=== PATIENT | male | born 1965 | race Caucasian/White ===

== ENCOUNTER 2022-11-07 14:31 | Emergency (ER) | payer OTHER, SELFPAY ==
--- NOTE | 2022-11-07 14:33 | ED.WOUNDLAC ---
HPI - Wound/Laceration General Chief Complaint: Wound/Laceration Stated Complaint: Laceration to Finger Time Seen by Provider: 11/07/22 14:33 Source: patient Mode of arrival: ambulatory Limitations: no limitations History of Present Illness HPI narrative: Mr. Braden is a 56-year-old male patient presenting to the clinic today with complaints a laceration to his left 3rd finger. He reports he was cutting up some vegetables and cut his finger. He reports that his tetanus shot is up-to-date. Bleeding is controlled Related Data Home Medications Medication Instructions Recorded Confirmed amlodipine 10 mg tablet mg 11/07/22 rosuvastatin 10 mg tablet mg 11/07/22 Allergies Allergy/AdvReac Type Severity Reaction Status Date / Time gabapentin Allergy Confusion Verified 11/07/22 14:36 naproxen AdvReac Severe Confusion Verified 04/04/19 13:18 Review of Systems Review of Systems: Pertinent positives per HPI. Patient denies any fever, chills, rash, headache, visual changes, dizziness, cough, runny nose, sore throat, shortness of breath, chest pain, palpitations, nausea, vomiting, diarrhea, constipation, abdominal pain, or any urinary issues. PMFSH Comments At the time of my signature, I reviewed and agree with the nursing past medical, surgical, social, and family history. There is no relevant family history pertinent to the patient complaint. Exam Narrative: General: Well-developed, obese, in no apparent distress Head: Normocephalic, atraumatic. Cardio: Regular rate and rhythm, s1 and s2 normal, no murmur appreciated. Resp: Clear to auscultation bilaterally, no rhonchi, rales, wheezing or rubs. Integumentary: [place], warm, and dry, intact without lesion, 1.5 cm laceration to the dorsal left 3rd finger just below the fingernail without nail involvement Course Course Emergency Course: Portions of this record may have been created with voice recognition software. Level of Care: Express Care Visit Vital Signs Vital signs: Vital Signs Temperature 36.7 C 11/07/22 14:36 Pulse Rate 96 11/07/22 14:36 Respiratory Rate 20 11/07/22 14:36 Blood Pressure 131/97 H 11/07/22 14:36 Pulse Oximetry 97 11/07/22 14:36 Oxygen Delivery Room Air 11/07/22 14:36 Temperature 36.7 C 11/07/22 14:36 Pulse Rate 96 11/07/22 14:36 Respiratory Rate 20 11/07/22 14:36 Blood Pressure 131/97 H 11/07/22 14:36 Pulse Oximetry 97 11/07/22 14:36 Oxygen Delivery Room Air 11/07/22 14:36 Vital signs reviewed Procedures Laceration Laceration 1: Date: 11/07/22 Site: hand (Third finger) Side (If applicable): left Size (cm): 1.5 Description: linear Depth: simple, single layer Local Anesthetic: lidocaine 1% Amount of anesthesia used (mL): 1 Pre-repair: wound explored and irrigated ====== Skin Level ====== Skin layer closed with: nylon Size (cm): 5-0 Number of sutures: 3 Technique: simple, interrupted ====== Subcutaneous Layer ====== ====== Muscle Layer ====== ====== Tendon Layer ====== Dressing: Verbal consent obtained for laceration repair. Risk and benefits explained and patient voiced understanding. Area was cleansed with Techni care and a 25 gauge needle was then used to instill (1) ml of 1% lidocaine without epi into the wound edges. Area was prepped and draped using sterile technique. A 4-0 suture on a p needle was used to place (3) interrupted sutures bringing the wound edges together- well approximated. Patient tolerated procedure well. Sterile dressing applied. MDM - Wound/Laceration MDM Narrative Medical decision making narrative: At the time of visit patient is resting comfortably on the exam table. Laceration repair performed in the clinic today. Three interrupted sutures used to bring wound edges well approximate. Laceration measures 1.5 cm. Supportive measures and suture care
[2022-11-07 14:36] VITALS: BP 131/97; PULSE 96; RESP 20; TEMP 36.7; O2SAT 97
== END 2022-11-07 15:13 | disposition home or self-care (01) ==
PROVIDERS: Emergency Provider Nurse Practitioner Family
DX: S61.213A Laceration without foreign body of left middle finger without damage to nail, initial encounter (principal); W26.0XXA Contact with knife, initial encounter
CPT/HCPCS: 12001; 99212; G0463

== ENCOUNTER 2023-10-03 00:11 | Day surgery (SDC) | payer OTHER, SELFPAY ==
[2023-09-19 12:59] VITALS: BMI 29.6
--- NOTE | 2023-09-29 13:55 | SUR.PREOP ---
Patient called regarding upcoming procedure. Reviewed preop instructions, appointment times, and procedure prep.
[2023-10-03 09:15] VITALS: BP 141/95; PULSE 72; RESP 16; TEMP 36.3; O2SAT 99; BMI 30.4
[2023-10-03] MEDS: LACTATED RINGERS 1,000 ML 150 ML IV CONT (09:29)
--- NOTE | 2023-10-03 09:37 | PM.HPGS ---
History of Present Illness History of Present Illness Consent: Risks, benefits, and alternatives have been discussed and questions answered. Patient agrees to proceed with procedure. Chief complaint: Fay's Esophagus,Hiatal Hernia Narrative: Dontrell Braden is a 57 year old male Presents for EGD. Patient has a history of Fay's esophagus. In 2017 also had ulcerations from acid reflux. Currently maintained on omeprazole 20mg p.o. daily. Patient denies any heartburn. He has no dysphagia. No bleeding or weight loss. He presents today for surveillance follow-up EGD. Family history is noncontributory. Review of Systems Review of Systems: Review of systems noncontributory. COUNTS INCLUDE 234 BEDS AT THE [facility] Social History Social History Tobacco type: pipe Alcohol intake: current Drinks per week: 14 Substance use: never Substance use type: does not use Living arrangements: with family Spiritual care concerns: No Meds Home Medications and Allergies Home Medications Medication Instructions Recorded Confirmed Type rosuvastatin 10 mg tablet 10 mg PO DAILY 11/07/22 10/03/23 History aspirin 81 mg capsule 81 mg PO DAILY 09/19/23 10/03/23 History duloxetine 30 mg capsule,delayed 30 mg PO DAILY 09/19/23 10/03/23 History release losartan 50 mg tablet 50 mg PO DAILY 09/19/23 10/03/23 History omeprazole 20 mg capsule,delayed 20 mg PO DAILY 09/19/23 10/03/23 History release Allergies Allergy/AdvReac Type Severity Reaction Status Date / Time gabapentin Allergy Confusion Verified 10/03/23 09:12 naproxen AdvReac Severe Confusion Verified 10/03/23 09:12 Vital Signs Vital Signs - 24 hr 10/03/23 09:15 Temperature 97.3 F L Pulse Rate 72 Respiratory Rate 16 Blood Pressure 141/95 H Pulse Oximetry 99 Oxygen Delivery Room Air Exam Narrative: Physical exam reveals patient to be alert. Vital signs stable. HEENT exam is unremarkable. Patient is anicteric. Lungs are clear to auscultation and percussion. Heart is without murmur or extra sounds. Abdomen bowel sounds present soft nontender with no organomegaly. Digital external rectal exam is normal. Assessment and Plan Assessment and plan (1) Fay's esophagus: Code(s): K22.70 - Fay's esophagus without dysplasia Status: Acute Assessment and Plan: Patient with a history of Fay's esophagus dating back to 2017. Currently with no symptoms. Maintained on omeprazole. Plan for surveillance EGD now and consider this at 3 year intervals. Continue anti-reflux measures.
--- NOTE | 2023-10-03 10:43 | WPDANESEPPF ---
Anes - Initial Pre Proc Eval Procedure: Operation Date: 10/03/23 10:30 Proposed Procedures p Esophagogastroduodenoscopy - Ramon Oliva MD Date/Time: 10/03/23 10:43 Surgeon: Ramon Oliva MD Pre Op Diagnosis: Fay's Esophagus,Hiatal Hernia Patient Data Age: 57 Gender: M Height: 1.75 m Weight: 93.7 kg Last Vital Signs Temp 97.3 F L 10/03/23 09:15 Pulse 72 10/03/23 09:15 Resp 16 10/03/23 09:15 BP 141/95 H 10/03/23 09:15 Pulse Ox 99 10/03/23 09:15 O2 Del Method Room Air 10/03/23 09:15 Allergies Allergy/AdvReac Type Severity Reaction Status Date / Time gabapentin Allergy Confusion Verified 10/03/23 09:12 naproxen AdvReac Severe Confusion Verified 10/03/23 09:12 Home Medications Medication Instructions Recorded Confirmed Type rosuvastatin 10 mg tablet 10 mg PO DAILY 11/07/22 10/03/23 History aspirin 81 mg capsule 81 mg PO DAILY 09/19/23 10/03/23 History duloxetine 30 mg capsule,delayed 30 mg PO DAILY 09/19/23 10/03/23 History release losartan 50 mg tablet 50 mg PO DAILY 09/19/23 10/03/23 History omeprazole 20 mg capsule,delayed 20 mg PO DAILY 09/19/23 10/03/23 History release Patient hx anesthesia problems: none Family hx anesthesia problems: none Results Review: All pre-operative results and documents have been reviewed as part of the pre-operative evaluation. [facility] Social History Social History Tobacco type: pipe Alcohol intake: current Drinks per week: 14 Substance use: never Substance use type: does not use Living arrangements: with family Spiritual care concerns: No Anes - Eval Final PreProcedure Day of Procedure 10/03/23 10:43 Patient weight: obese Heart: regular rate and rhythm Lungs: clear to auscultation Airway: Mallampati scale class II Neurological: alert and oriented Last oral intake: >/= 8 hours ASA classification: II Emergent: no Anesthetic plan: proceed Anesthesia type and monitoring: general GIVS and standard monitoring Results Review: All pre-operative results and documents have been reviewed as part of the pre-operative evaluation. Informed Consent: The patient's anesthetic plan and its attendant risks and benefits were discussed with the patient/family/POA. Questions were solicited and answers provided to the satisfaction of the patient/family/POA.
[2023-10-03] MEDS: SIMETHICONE ORAL SUSPENSION 20 MG/0.3 ML 30 ML BOTTLE 0.6 ML IRRIGATION (10:49)
[2023-10-03 10:58] VITALS: BP 123/85; PULSE 84; RESP 19; O2SAT 98
[2023-10-03 11:08] VITALS: BP 122/97; PULSE 71; RESP 17; O2SAT 100
[2023-10-03 11:18] VITALS: BP 124/88; PULSE 66; RESP 19; O2SAT 97
== END 2023-10-03 11:24 | disposition home or self-care (01) ==
PROVIDERS: PCP Internal Medicine; Visit Provider Internal Medicine Gastroenterology
PROC: 0DJ08ZZ Inspection of Upper Intestinal Tract, Via Natural or Artificial Opening Endoscopic (ICD-10-PCS; CPT 43235; principal; 2023-10-03 10:30)
DX: K22.70 Barrett's esophagus without dysplasia (principal); K44.9 Diaphragmatic hernia without obstruction or gangrene; K29.50 Unspecified chronic gastritis without bleeding; F17.290 Nicotine dependence, other tobacco product, uncomplicated; E66.9 Obesity, unspecified; Z68.30 Body mass index [BMI] 30.0-30.9, adult; Z79.82 Long term (current) use of aspirin
CPT/HCPCS: 43239; 88305; J2704; J7120

== ENCOUNTER 2025-07-15 00:51 | Day surgery (SDC) | payer OTHER, SELFPAY ==
--- OUTSIDE RECORDS SUMMARY | 2025-06-16 06:00 | XMS_ITS | Continuity of Care Document ---
Author Organization [facility] Address [address] [facility] [address] [place] [address] Phone Care Team Providers Care Torch Operator Name Role Phone MaganaClaire olsen OT Unavailable Unavailable Procedures Procedure Date Therapeutic Activities Neuromuscular Re-Ed Therapeutic Exercise Therapeutic Activities Neuromuscular Re-Ed Therapeutic Exercise Hot or Cold Pack Therapeutic Activities Neuromuscular Re-Ed Therapeutic Exercise Hot or Cold Pack Therapeutic Activities Neuromuscular Re-Ed Therapeutic Exercise Hot or Cold Pack Therapeutic Activities Neuromuscular Re-Ed Therapeutic Exercise Therapeutic Activities Neuromuscular Re-Ed Therapeutic Exercise Therapeutic Activities Neuromuscular Re-Ed Therapeutic Exercise Therapeutic Activities Neuromuscular Re-Ed Therapeutic Exercise Therapeutic Activities Therapeutic Exercise Therapeutic Activities Therapeutic Exercise Therapeutic Activities Therapeutic Exercise Hot or Cold Pack Progress Note Therapeutic Activities Neuromuscular Re-Ed Therapeutic Exercise Therapeutic Activities Neuromuscular Re-Ed Therapeutic Exercise Therapeutic Activities Neuromuscular Re-Ed Therapeutic Exercise Hot or Cold Pack Therapeutic Activities Neuromuscular Re-Ed Therapeutic Exercise Hot or Cold Pack Therapeutic Activities Neuromuscular Re-Ed Therapeutic Exercise Therapeutic Activities Neuromuscular Re-Ed Therapeutic Exercise Therapeutic Activities Neuromuscular Re-Ed Therapeutic Exercise Therapeutic Activities Neuromuscular Re-Ed Therapeutic Exercise Therapeutic Activities Neuromuscular Re-Ed Therapeutic Exercise Therapeutic Activities Neuromuscular Re-Ed Therapeutic Exercise Therapeutic Activities Neuromuscular Re-Ed Therapeutic Exercise Hot or Cold Pack Doc neg elder mal no plan Identified as not an unhealthy alcohol u ser Not identified as unhealthy alcohol via screening OT Re-Evaluation Therapeutic Activities Neuromuscular Re-Ed Therapeutic Exercise Hot or Cold Pack Therapeutic Activities Neuromuscular Re-Ed Therapeutic Exercise Hot or Cold Pack Therapeutic Activities Neuromuscular Re-Ed Therapeutic Exercise Hot or Cold Pack Therapeutic Activities Neuromuscular Re-Ed Therapeutic Exercise Hot or Cold Pack Therapeutic Activities Neuromuscular Re-Ed Therapeutic Exercise Hot or Cold Pack Therapeutic Activities Neuromuscular Re-Ed Therapeutic Exercise Hot or Cold Pack Therapeutic Activities Neuromuscular Re-Ed Therapeutic Exercise Hot or Cold Pack Therapeutic Activities Neuromuscular Re-Ed Therapeutic Exercise Hot or Cold Pack Therapeutic Activities Therapeutic Exercise Neuromuscular Re-Ed Hot or Cold Pack Doc neg elder mal no plan Identified as not an unhealthy alcohol u ser Not identified as unhealthy alcohol via screening OT Evaluation Low Complexity Therapeutic Activities Neuromuscular Re-Ed Therapeutic Exercise Hot or Cold Pack Free Assessment Therapeutic Activities Neuromuscular Re-Ed Therapeutic Exercise Hot or Cold Pack Therapeutic Activities Neuromuscular Re-Ed Therapeutic Exercise Therapeutic Activities Neuromuscular Re-Ed Therapeutic Exercise Therapeutic Activities Neuromuscular Re-Ed Therapeutic Exercise Hot or Cold Pack Therapeutic Activities Neuromuscular Re-Ed Therapeutic Exercise Hot or Cold Pack Therapeutic Activities Neuromuscular Re-Ed Therapeutic Exercise Therapeutic Activities Neuromuscular Re-Ed Therapeutic Exercise Hot or Cold Pack Therapeutic Activities Neuromuscular Re-Ed Therapeutic Exercise Therapeutic Activities Neuromuscular Re-Ed Therapeutic Exercise Hot or Cold Pack Therapeutic Activities Neuromuscular Re-Ed Therapeutic Exercise Hot or Cold Pack Therapeutic Activities Neuromuscular Re-Ed Therapeutic Exercise Hot or Cold Pack Therapeutic Activities Neuromuscular Re-Ed Therapeutic Exercise Hot or Cold Pack Therapeutic Activities Neuromuscular Re-Ed Therapeutic Exercise Hot or Cold Pack Therapeutic Activities Neuromuscular Re-Ed Therapeutic Exercise Hot or Cold Pack OT Evaluation Moderate Complexity Therapeutic Activities Neuromuscular Re-Ed Therapeutic Exercise Screen THERAPEUTIC EXERCISES NEUROMUSCULAR RE-ED FUNC ACTIVITY THERAPEUTIC EXERCISES NEUROMUSCULAR RE-ED MANUAL THERAPY FUNC ACTIVITY HOT/COLD PACK THERAPEUTIC EXERCISES NEUROMUSCULAR RE-ED MANUAL THERAPY FUNC ACTIVITY HOT/COLD PACK THERAPEUTIC EXERCISES NEUROMUSCULAR RE-ED MANUAL THERAPY FUNC ACTIVITY HOT/COLD PACK THERAPEUTIC EXERCISES NEUROMUSCULAR RE-ED MANUAL THERAPY FUNC ACTIVITY HOT/COLD PACK THERAPEUTIC EXERCISES NEUROMUSCULAR RE-ED MANUAL THERAPY FUNC ACTIVITY HOT/COLD PACK THERAPEUTIC EXERCISES NEUROMUSCULAR RE-ED MANUAL THERAPY FUNC ACTIVITY HOT/COLD PACK THERAPEUTIC EXERCISES NEUROMUSCULAR RE-ED MANUAL THERAPY FUNC ACTIVITY HOT/COLD PACK THERAPEUTIC EXERCISES NEUROMUSCULAR RE-ED MANUAL THERAPY FUNC ACTIVITY HOT/COLD PACK THERAPEUTIC EXERCISES NEUROMUSCULAR RE-ED MANUAL THERAPY FUNC ACTIVITY HOT/COLD PACK THERAPEUTIC EXERCISES NEUROMUSCULAR RE-ED MANUAL THERAPY FUNC ACTIVITY HOT/COLD PACK PT EVALUATION THERAPEUTIC EXERCISES MANUAL THERAPY Advance Directives Directive Yes / No Effective Date File Name No Information Encounters Encounter Description Practice Location Reason(s) For Visit Diagnoses Date Provider Providers Copied on Encounter [facility] [facility], [place], [place], [id number], tel:[phone] [place] No Information 5 Izzy Rangel. . Referring Provider: Gurpreet Cho, [address] [place], [address]. tel:[phone] [facility] [address], [place], [place], [address], [place] tel:[phone] [place] No Information 5 Izzy Rangel. . Referring Provider: Gurpreet Cho, [address] [place], [address]. tel:[phone] [facility], [place], [place], [address], tel:[phone] [place] No Information Apr-1 1-202 5 Magana Claire. . Referring Provider: Gurpreet Cho, [address] [place] [address], [address]. tel:[phone] [facility], [address], [place], [place], [address], [place] tel:[phone] [place] No Information Juan-1 2-202 5 Magana Claire. . Referring Provider: Gurpreet Cho, [address] [place] [address], [address]. tel:[phone] [facility], [address], [place], [place], [address], [place] tel:[phone] [place] No Information Juan-0 6-202 5 Magana Claire. . Referring Provider: Gurpreet Cho, [address] [place] [address], [address]. tel:[phone] [facility], [address], [place], [place], [address], [place] tel:[phone] [place] No Information Juan-0 3-202 5 Magana Claire. . Referring Provider: Gurpreet Cho, [address] [place] [address], [address]. tel:[phone] [facility], [address] [facility] [facility], [place], [place], [address], [place] tel:[phone] [place] No Information February-3 0-202 5 Magana Claire. . Referring Provider: Gurpreet Cho, [address] [place] [address], [address]. tel:[phone] [facility], [address], [place], [place], [address], [place] tel:[phone] [place] No Information February-2 7-202 5 Magana Claire. . Referring Provider: Gurpreet Cho, [address] [place] [address], [address]. tel:[phone] [facility], [address], [place], [place], [address], [place] tel:[phone] [place] No Information May-2 3-202 5 Magana Claire. . Referring Provider: Gurpreet Cho, [address] [place] [address], [address]. tel:[phone] [facility], [address], [place], [place], [address], [place] tel:[phone] [place] No Information May-2 0-202 5 Magana Claire. . Referring Provider: Gurpreet Cho, [address] [place] [address], [address]. tel:[phone] [place] [address], [address] [facility] [address] [facility], [place], [place], [address], [place] tel:[phone] [place] No Information May-1 6-202 5 Magana Claire. . Referring Provider: Gurpreet Cho, [address] [place] [address], [address]. tel:[phone] [place] [address], [address] [facility] [address] [facility], [place], [place], [address], [place] tel:[phone] [place] No Information May-1 2-202 5 Magana Claire. . Referring Provider: Gurpreet Cho, [address] [place] [address], [address]. tel:[phone] [place] [address], [address] [facility], [place], [place], [address], [place] tel:[phone] [place] No Information May-0 7-202 5 Magana Claire. . Referring Provider: Gurpreet Cho, [address] [place] [address], [address]. tel:[phone] [facility], [address], [place], [place], [address], [place] tel:[phone] [place] No Information May-0 5-202 5 Magana Claire. . Referring Provider: Gurpreet Cho, [address] [place] [address], [address]. tel:[phone] [facility], [address], [place], [address], [place] tel:[phone] [place] No Information Apr-3 0-202 5 Magana Claire. . Referring Provider: Gurpreet Cho, [address] [place] [address], [address]. tel:[phone] [facility], [address], [place], [place], [address], [place] tel:[phone] [place] No Information Apr-2 8-202 5 Magana Claire. . Referring Provider: Gurpreet Cho, [address] [place] [address], [address]. tel:[phone] [facility], [address], [place], [place], [address], [place] tel:[phone] [place] No Information Apr-2 4-202 5 Magana Claire. . Referring Provider: Gurpreet Cho, [address] [place] [address], [address]. tel:[phone] [facility], [address], [place], [place], [address], [place] tel:[phone] [place] No Information Apr-1 1-202 5 Magana Claire. . Referring Provider: Gurpreet Cho, [address] [place] [address], [address]. tel:[phone] [facility], [address], [place], [place], [address], [place] tel:[phone] [place] No Information Apr-0 8-202 5 Magana Claire. . Referring Provider: Gurpreet Cho, [address] [place] [address], [address]. tel:[phone] [facility], [address], [place], [place], [address], [place] tel:[phone] [place] No Information Apr-0 3-202 5 Magana Claire. . Referring Provider: Gurpreet Cho, [facility] [place], [address]. tel:[phone] [facility], [address], [place], [place], [address], [place] tel:[phone] [place] No Information Apr-0 -202 5 Magana Claire. . Referring Provider: Gurpreet Cho, [address] [place] [address], [address]. tel:[phone] [facility], [address], [place], [place], [address], [place] tel:[phone] [place] No Information Mar-2 5 Magana Claire. . Referring Provider: Gurpreet Cho, [address] [place] [address], [address]. tel:[phone] [facility], [address], [place], [place], [address], [place] tel:[phone] [place] No Information Mar-2 - 5 Magana Claire. . Referring Provider: Gurpreet Cho, [address] [place] [address], [address]. tel:[phone] [facility], [address], [place], [place], [address], [place] tel:[phone] [place] No Information Mar-0 - 5 Magana Claire. . Referring Provider: Gurpreet Cho, [address] [place] [address], [address]. tel:[phone] [facility], [address], [place], [place], [address], [place] tel:[phone] [place] No Information Fe-2 5 Magana Claire. . Referring Provider: Gurpreet Cho, [address] [place] [address], [address]. tel:[phone] [facility], [address], [place], [address], [place] tel:[phone] [place] No Information Feb-2 5- 5 Magana Claire. . Referring Provider: Gurpreet Cho, [address] [place] [address], [address]. tel:[phone] [facility], [address], [place], [place], [address], [place] tel:[phone] [place] No Information Feb-2 0- 5 Magana Claire. . Referring Provider: Gurpreet Cho, [address] [place] [address], [address]. tel:[phone] [facility], [address], [place], [address], [place] tel:[phone] [place] No Information b- 5 Magana Claire. . Referring Provider: Gurprete Cho, [address] [place] [address], [address]. tel:[phone] [facility], [address], [place], [place], [address], [place] tel:[phone] [place] No Information b- 5 Magana Claire. . Referring Provider: Gurpreet Cho, [address] [place] [address], [address]. tel:[phone] [facility] [address], [place], [place], [address], [place] tel:[phone] [place] No Information b-10 23- 5 Magana Claire. . Referring Provider: Gurpreet Cho, [address] [place] [address], [address]. tel:[phone] [facility], [place], [place], [address], [place] tel:[phone] [place] No Information Feb-0 6- 5 Magana Claire. . Referring Provider: Gurpreet Cho [address] [place] [address], [address]. tel:[phone] [place] [address], [place], [address], [place] tel:[phone] [place] No Information 5 Izzy Rangel. . Referring Provider: Gurpreet Cho, [address] [place] [address], [address]. tel:[phone] [place], [place] [address], [place], [place], [address], [place] tel:[phone] [place] No Information 3 Harjeet Marsh [place], [place], [place]. Referring Provider: Physician Bre. [facility], [address], [place], [address], [place] tel:[phone] [place] No Information 3 Elisabeth Santiago. . Referring Provider: Gurpreet Cho, [address] [place] [address], [address]. tel:[phone] [place], [place] [address], [place], [address], [place] tel:[phone] [place] No Information 3 Elisabeth Santiago. . Referring Provider: Gurpreet Cho, [address] [place] [address], [address]. tel:[phone] [place] [address], [place], [address], [place] tel:[phone] [place] No Information 3 Elisabeth Santiago. . Referring Provider: Gurpreet Cho, [address] [place] [address], [address]. tel:[phone] [place] [address], [place], [place], [address], [place] tel:[phone] [place] No Information 3 Elisabeth Santiago. . Referring Provider: Gurpreet Cho, [address] [place] [address], [address]. tel:[phone] [facility], [place], [place], [address], [place] tel:[phone] [place] No Information 3 Elisabeth Pamela. . Referring Provider: Gurpreet Cho, [address] [place] [address], [address]. tel:[phone] [facility], [address], [place], [place], [address], [place] tel:[phone] [place] No Information 3 Elisabeht Pamela. . Referring Provider: Gurpreet Cho, [address] [place] [address], [address]. tel:[phone] [facility], [address], [place], [place], [address], [place] tel:[phone] [place] No Information 3 Elisabeth Pamela. . Referring Provider: Gurpreet Cho, [address] [place] [address], [address]. tel:[phone] [facility], [address], [place], [place], [address], [place] tel:[phone] [place] No Information 3 Elisabeth Pamela. . Referring Provider: Gurpreet Cho, [address] [place] [address], [place], [address]. tel:[phone] [facility] [address], [place], [place], [address], [place] tel:[phone] [place] No Information 3 Elisabeth Pamela. . Referring Provider: Gurpreet Cho, [address] [place] [address], [address]. tel:[phone] [facility], [place], [place], [address], [place] tel:[phone] [place] No Information 3 Elisabeth Pamela. . Referring Provider: Gurpreet Cho, [address] [place] [address], [address]. tel:[phone] [place] [address], [address] [place] [address], [place], [place], [address], [place] tel:[phone] [place] No Information 3 Elisabeth Pamela. . Referring Provider: Gurpreet Cho, [address] [place] [address], [address]. tel:[phone] [facility], [address] [place] [address], [place], [place], [address], [place] tel:[phone] [place] No Information Mar- 3 Elisabeth Pamela. . Referring Provider: Gurpreet Cho, [address] [place] [address], [address]. tel:[phone] [facility], [address] [place] [address], [place], [place], [address], [place] tel:[phone] [place] No Information 3 Elisabeth Pamela. . Referring Provider: Gurpreet Cho, [address] [place] [address], [address]. tel:[phone] [place] [address], [address] [place] [address], [place], [place], [address], [place] tel:[phone] [place] No Information 3 Elisabeth Pamela. . Referring Provider: Gurpreet Cho, [facility] [place], [address]. tel:[phone] [facility], [address] [place] [address], [place], [place], [address], [place] tel:[phone] [place] No Information 3 Elisabeth Pamela. . Referring Provider: Gurpreet Cho, [facility] [place], [address]. tel:[phone] [facility], [address] [address], [place], [place], [address], [place] tel:[phone] [place] No Diagnosis 0 7 Rudy Thelma. [address] [facility], [address], [place], [address], [place]. tel:[phone] Referring Provider: Physician Screen. [facility], [place], [place], [address], [place] tel:[phone] [place] No Information 7 [place], [place]. [facility], [place], [place], [address], [place] tel:[phone] [place] No Information 7 Niederhoffer Harper. . [facility], [place], [address], [place] tel:[phone] [place] No Information 7 Rudy Thelma. [address] [facility], [address], [place], [place], [facility], [place]. tel:[phone] [facility], [place], [place], [address], [place] tel:[phone] [place] No Information 7 Niederhoffer Harper. . [facility], [place], [place], [address], [place] tel:[phone] [place] No Information 7 Hoagland Thelma. [address] [facility], [address], [place], [place], [facility], [place]. tel:[phone] [facility], [place], [place], [address], [place] tel:[phone] [place] No Information 7 Hoagland Thelma. [address] [facility], [address], [place], [address], [place]. tel:[phone] [facility], [place], [place], [address], [place] tel:[phone] [place] No Information 7 Hoagland Thelma. [address] [facility], [address], [place], [address], [place]. tel:[phone] [place] [address] [place], [place] [address] [address], [place], [place], [address], tel:[phone] [place] No Information 7 Rudy Thelma. [address] [place] [address], [address] [address], . tel:[phone] [place] [address] [place] [address], [place], [place], [address], tel:[phone] [place] No Information 7 Hoagland Thelma. [address] [place] [address], [address], [place], [place], [facility], . tel:[phone] [place] [address] [place] [address], [place], [place], [address], tel:[phone] [place] No Information 7 Hoagland Thelma. [address] [place] [address], [facility] [address] [address], . tel:[phone] [place] [address] [place] [address], [place], [place], [address], tel:[phone] [place] No Information 6 Hoagland Thelma. [address] [place] [address], [facility] [address], [place] [address], . tel:[phone] [facility] [address] [place] [address], [place], [address], tel:[phone] [place] Pain in right shoulderStiff ness of right shoulder, not elsewhere classifiedMus castro weakness (generalized) Abnormal postureOther specified postprocedura l states 6 Rudy Thelma. [address] [place] [address], [address], [place], [place], [facility], . tel:[phone] Family History Family Member Type Diagnosis Age At Onset No Information Payers Payer name Insurance type Covered republican ID Ginger alexander(s) [employer] CI [id number] Social History Type Description Quantity Date Captured Comments Sex Male Smoking Status No Information Chief Complaint And Reason For Visit No Information Reason For Referral Reason For Referral No Information History Of Present Illness Encounter Date Complaint History Of Prese nt Illness No Information Functional Status Date Functional Assessmen t No Information Instructions Date Instruction Additional Infor samm Prescribed activity/exercise edu cation Related to Overweight Dietary needs education Related to Overweight Assessments Type Assessment Date No Information Patient Care Teams Name Effective Dates (start - stop) Status Members No Information
[2025-07-03 14:51] VITALS: BMI 36.9
--- OUTSIDE RECORDS SUMMARY | 2025-07-15 00:56 | XMS_ITS | Encounter Summary ---
Author Organization [facility] Healthcare Address [address] [place] [address] Care Team Providers Care Turbinated Bone Grinder Name Role Phone Andry Kerns MD Primary Care Provider + Juan Antonio Lopez DO Unavailable [phone] Dariel Ross MD Unavailable Ramon Oliva MD Unavailable [phone] Abran Falcon MD Unavailable [phone] Encounter Details Date Type Department Care Team (Late st Contact Info) Description 05/20/2022 Telephone [facility] ([facility]) [address] [place] [address] Andry Kerns MD [address] [address] Social History Tobacco Use Types Packs/Day Years Used Date Smoking Tobacco: Every Day Pipe Started: 2004 Smokeless Tobacco: Never Comments:Smokes pipe but figueroa s not inhale much Alcohol Use Standard Drinks/Week Comments Yes 0 (1 standard drink = 0.6 oz pur e alcohol) 21 oz per week AUDIT-C Answer Date Recorded Q1: How often do you have a drink containing alcohol? 4 or more times a week 04/07/2022 Q2: How many drinks containi ng alcohol do you have on a typical day when you are drinking? 1 or 2 2 Q3: How often do you have si x or more drinks on one occasion? 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 Sexual Orientation Straight 05/07/2019 2: 23 PM CDT Occupation Industry Job Start Date Job End Date professor Not on file Not on file Not on file documented as of this encounter Plan of Treatment Not on file documented as of this encounter Visit Diagnoses Not on filedocumented in this encounter Care Teams Turbinated Bone Grinder Relationship Specialty Start Date End Date Andry Kerns MD [facility] [place] [address] [place] [address] PCP - General 02/15/17 Juan Antonio Lopez DO [facility] [place] [address] [place] [address] Surgeon Physical Medicine and Rehabilitation 04/24/18 Dariel Ross MD [address] [place] [address] [address] [place] [address] Surgeon Orthopedic Surgery 04/24/18 Ramon Oliva MD [facility] [place] [address] [place] [address] Referring Physician Gastroenterology 04/27/18 Abran Falcon MD [address] [facility] [address] [place] [address] Surgeon Orthopedic Surgery 10/26/18 documented as of this encounter
--- OUTSIDE RECORDS SUMMARY | 2025-07-15 00:57 | XMS_ITS | Clinical Summary ---
Author Organization [facility] Address [address] [place] [address] Care Team Providers Care Store Receiver Name Role Phone Andry Kerns MD Primary Care Provider + Juan Antonio Lopez DO Unavailable Dariel Ross MD Unavailable Ramon Oliva MD Unavailable [phone] Abran Falcon MD Unavailable [phone] Allergies Active Allergy Reactions Criticality Noted Date Comments Amlodipine Stomach upset Low 02/28/2023 Gabapentin Other (See comments) Low 07/17/2020 Mental status changes Nsaids (Non-Steroidal Anti-Inflammatory Drug) Other (See comments) High 09/06/2023 History of esophageal ulcer Medications omeprazole (PriLOSEC) 20 mg capsuleIndications :Gastroesophageal reflux disease without esophagitis,Histor y of esophageal ulcer Take 1 capsule (20 mg total) by mouth daily Patient requires correction therapy 90 capsule 3 020 Active Additional Information Patient taking differently:20 mg oralEvery morning, Patient requires parts counterman therapy,Indications: GERD, Reported on 04/29/2025 calcium carbonate-vitamin D3 1500 mg (600 mg elemental) -200 units per tabletIndications: Vitamin D Deficiency Take 2 tablets by mouth concrete tester before breakfast Active multivitamin capsule Take 1 capsule by mouth every morning Active aspirin 81 mg enteric coated tabletIndications: primary prevention of coronary heart disease,?TIA Take 1 tablet (81 mg total) by mouth concrete tester before breakfast Stopped as of 07/13/2022 per pcp Active olopatadine (PATADAY) 0.2 % ophthalmic solutionIndication s:Allergic Conjunctivitis Administer 1 drop into both eyes as needed for allergies Active triamcinolone (KENALOG) 0.1 % lotionIndications: Skin Inflammation Apply twice daily to rash on legs for up to 14 days 60 mL 3 022 Active ascorbic acid (vitamin C) 1,000 mg tablet Take 1 tablet (1,000 mg total) by mouth every other day Active magnesium hydroxide 400 mg (170 mg magnesium) tablet,chewable Take 800 mg by mouth daily Active cyanocobalamin (Vitamin B-12) 1,000 mcg sublingual tablet Take 1 tablet (1,000 mcg total) by mouth daily Active losartan (COZAAR) 100 mg tabletIndications: Primary hypertension Take 1 tablet (100 mg total) by mouth daily 90 tablet 3 025 Active respiratory syncytial virus vaccine (Arexvy, PF,) 120 mcg/0.5 mL vaccineIndications :Respiratory Syncytial Virus Pneumonia Prevention Inject 0.5 mL into the muscle as instructed once for 1 dose 0.5 mL 025 Active pneumococcal 20-valent (PREVNAR 20) 0.5 mL vaccineIndications :Streptococcus pneumoniae vaccination Inject 0.5 mL into the muscle as instructed once for 1 dose 0.5 mL 025 Active rosuvastatin (CRESTOR) 10 mg tabletIndications: Dyslipidemia TAKE 1 TABLET BY MOUTH EVERY DAY 90 tablet 3 025 Active zolpidem (Ambien) 5 mg tabletIndications: Sleep-Onset Insomnia Take 0.5-1 tablets (2.5-5 mg total) by mouth nightly as needed for sleep 20 tablet 025 2025 Active HYDROcodone-acetam inophen (NORCO) 5-325 mg per tabletIndications: Pain Take 1 tablet by mouth every 8 (eight) hours as needed for pain [address] (CYMBALTA) 30 mg capsuleIndications :Chronic Musculoskeletal Pain Take 1 capsule (30 mg total) by mouth 2 (two) times a day 180 capsule 3 025 Active hydroCHLOROthiazid e (HYDRODIURIL) 25 mg tabletIndications: Primary hypertension Take 1 tablet (25 mg total) by mouth daily 90 tablet 4 025 2025 Active albuterol HFA (PROVENTIL HFA,VENTOLIN HFA,PROAIR HFA) 90 mcg/actuation inhalerIndications :Shortness of breath Inhale 2 puffs every 6 (six) hours as needed for wheezing 3 each 4 025 2025 Active methocarbamoL (ROBAXIN) 500 mg tablet Take 1 tablet (500 mg total) by mouth 3 (three) times a day as needed for muscle spasms As needed for pain, Can take half a tablet in the beginning 90 tablet 2 025 Active traMADoL (ULTRAM) 50 mg tabletIndications: Chronic pain syndrome TAKE 1 TABLET (50 MG TOTAL) BY MOUTH EVERY 8 (EIGHT) HOURS NEEDED FOR PAIN. 30 tablet 1 025 Active traMADoL (ULTRAM) 50 mg tabletIndications: Chronic pain syndrome TAKE 1 TABLET (50 MG TOTAL) BY MOUTH EVERY 8 (EIGHT) HOURS NEEDED FOR PAIN. 60 tablet 025 2024 Discontinued Active Problems Problem Noted Date Diagnosed Date Fatigue 05/13/2025 History of transient ischemic attack (TIA) 01/01 Obesity (BMI 30-39.9) 01/01/2025 Chronic left-sided low back pain without sciatic a 09/06/2023 Hiatal hernia 09/05/2023 Fay's esophagus with dysplasia 02/28/2023 Bilateral arm weakness 02/28/2023 Elevated PSA 02/27/2023 Peripheral neuropathy 09/06/2022 Pruritic condition 09/06/2022 High frequency sensorineural hearing loss of rig ht ear 04/07/2022 Tinnitus of both ears 02/25/2022 Loss of sensation 02/25/2022 Chronic pain syndrome 07/17/2020 Assessment & Plan (05/20/2024 11:10 AM CDT): Stable on current medications with intermittent flare ups Takes tramadol PRN Minimal side effects Refill as needed Chronic foot pain, left 04/26/2019 Headache 04/25/2019 Edema 04/25/2019 History of esophageal ulcer 10/26/2018 Dyslipidemia 10/25/2018 Hypertension 11/17/2017 Assessment & Plan (05/13/2025 4:44 PM CDT): Hypertension is worsening Dietary sodium restriction. Weight loss. Regular aerobic exercise. Continue current medications. Medication changes per orders. Ambulatory blood pressure monitoring. Blood pressure will be reassessed in 4 weeks. Does not tolerate amlodipine, will send HCTZ Repeat BMP in 1 month Arthralgia of hip 05/17/2017 Pain in the shoulder 05/10/2017 Overview (10/26/2018): acromioclavicular arthropathy s/p steroid injection Iron deficiency anemia 04/06/2017 Overview (04/24/2018): Admit 04/08. Anson to be due to esophageal ulcer secondary to nsaid use Vitamin D deficiency 04/06/2017 Gastroesophageal reflux disease 03/27/2017 Iliotibial band syndrome of right side 7 Cramps of lower extremity 03/27/2017 Palpitations 03/27/2017 Snoring 03/27/2017 Pain of thigh 03/27/2017 Encounters Date Type Department Care Team Description 06/24/2025 Orders Only [address] [phone] Jadiel Ro, CECELIA Hx of NSAID-associated gastropathy (Primary Dx); Fay's esophagus with dysplasia; Mild anemia 06/24/2025 Orders Only [address] [phone] Jadiel Ro, CECELIA 06/24/2025 Orders Only [address] [phone] Andry Kerns MD Fay's esophagus with dysplasia (Primary Dx); Mild anemia; Hx of NSAID-associated gastropathy 06/24/2025 Orders Only [address] [phone] Andry Kerns MD 05/21/2025 2:19 PM CDT - 05/21/2025 11:59 PM CDT Hospital Encounter [facility] at the [facility] [address] [place] [address] [place] [id number] Olivia Poole MD PhD Chronic pain syndrome (Primary Dx); Chronic pain of both shoulders; Pain in both thighs Discharge Disposition: Discharge to home or self care 05/20/2025 9:30 AM CDT - 05/20/2025 11:59 PM CDT Hospital Encounter [facility] [address] [place] [phone] Fatigue, unspecified type; Shortness of breath; Tachycardia; Palpitations Discharge Disposition: Discharge to home or self care 05/20/2025 9:24 AM CDT - 05/20/2025 11:59 PM CDT Hospital Encounter [facility] [address] [place] [phone] Fatigue, unspecified type; Shortness of breath; Primary hypertension Discharge Disposition: Discharge to home or self care 05/14/[address] [phone] Flower Galindo 05/14/2025 Results Follow-Up [address] [phone] Jadiel Ro, CECELIA CBC with auto differential, Pro B-type natriuretic peptide, Differential, auto, Additional followed-up results: 9 05/14/2025 Orders Only [address] [phone] Jadiel Ro, CECELIA Iron deficiency anemia, unspecified iron deficiency anemia type (Primary Dx) 05/13/2025 11:55 AM CDT Lab [facility] at the [address] [phone] Fatigue, unspecified type; Shortness of breath 05/13/2025 11:00 AM CDT Office Visit [address] [place] [address] Jadiel Ro DNP Fatigue, unspecified type (Primary Dx); Shortness of breath; Primary hypertension; Tachycardia; Palpitations 04/29/2025 12:37 PM CDT - 04/29/2025 11:59 PM CDT Hospital Encounter [facility] Center at the [facility] [address] [facility] [address] [place] [address] Regis Calderon NP Chronic pain syndrome (Primary Dx) Discharge Disposition: Discharge to home or self care 04/23/2025 Telephone [facility] Center at the [place] [address] [facility] [address] [place] [address] Olivia Poole MD PhD from Last 3 Months Immunizations Immunization Administration Dates Next Due Influenza, Quadrivalent, Spl it, Intramuscular 07/24/2023 Influenza, Trivalent, IM (MDV) 08/15/2022 Influenza, Unspecified 07/24/2024,2023,07/24/2023,07/23 Glenis (J&J) SARS-CoV-2 Vaccination 12/25/2020 Moderna SARS-CoV-2 Monovalen t Vaccination (12+ YRS) 02/05/2022,10/06/2021 Pfizer Sars-Cov-2 Bivalent V accination (12+ YRS) 06/29/2022 Tdap 03/27/2017 ZOSTER Recombinant 07/18/2022,05/15/2022 Surgical History Surgery Date Site/Laterality Comments [place] DIAGNOSTIC ARTHROSCOPY SHOULDER +- SYNOVIAL BX 10/23/1990 - 10/22/1991 Arthroscopy Shoulder - 1990 - right rotator cuff repair. 05/07 - right rotator cuff repair (Added by TW Conv) LEG SURGERY 10/23/1984 - 10/22/1985 Left Leg Repair - multiple surgeries 1984 for compound tibial fx. (Added by TW Conv) WRIST SURGERY 10/23/1984 - 10/22/1985 Wrist Surgery - fx repair 1984. hardware removed 1987 (Added by TW Conv), left KS PROPH TX W/WO METHYLMETHACRYLATE CLAVICLE Left fracture Pinning Of The Clavicle - clavical rx repair 1984. hardware removed 1987 (Added by TW Conv) [place] ARTHROSCOPY KNEE DIAGNOST IC W/WO SYNOVIAL BX SPX 10/23/1988 - 10/22/1989 Arthroscopy Knee Right - 1988 - meniscal injury (Added by TW Conv) [place] ARTHROSCOPY KNEE DIAGNOST IC W/WO SYNOVIAL BX SPX 10/23/1996 - 10/22/1997 Arthroscopy Knee Left - 1996 - left meniscal injury (Added by TW Conv) FLUORO GUIDED ASPIRATION OR INJECTION INTERMEDIATE JOINT RIGHT 10/10/2018 Right FLUORO GUIDED INJECTION ANKL E LEFT 03/26/2020 Left KNEE ARTHROSCOPY W/ LATERAL RELEASE Several LEG SURGERY TIBIAL IM OMER REMOVAL FRACTURE SURGERY Several SHOULDER SURGERY Multiple Medical History Medical History Date Comments Pain in shoulder Shoulder pain - mgmt as per ortho (Added by TW Conv) Encounter for screening for other viral diseases Need for hepatitis C screeni ng test - neg 04/08 (Added by TW Conv) Other forms of dyspnea FIGUEROA (dysp martin on exertion) - 04/08 - figueroa/weakness/lightheaded. felt to be related to anemia (Added by TW Conv) Arthritis Anemia resolved GERD (gastroesophageal reflu x disease) well controlled Hypertension Peptic ulceration resolved Obesity History of transfusion Transfusion history TIA (transient ischemic attack) 12/2021 Possible TIA about 5 months ago (December 2021) Weird sudden weakening in Right leg/ mild numbness on right side of body for couple weeks, neg MRI & CT Allergic rhinitis Dyslipidemia Joint pain December 07, 1984 Traumatic injury December 07, 1984 Extremity pain December 07, 1984 Chronic pain disorder December 07, 1984 Family History Medical History Relation Name Comments GI problems Maternal Grandfather Momo Samuel Stroke Maternal Grandmother Jing Samuel Brain cancer Mother Concetta Giraldo Brain tumo r - at age 72 (Added by TW Conv) Cancer Mother Concetta Giraldo Family his tory of malignant neoplasm - breast cancer (Added by TW Conv) GI problems Mother's Brother Jalen Rothbaldemar ALS Sister Colon cancer Neg Hx Prostate cancer Neg Hx Relation Name Status Comments Maternal Grandfather Momo Samuel Maternal Grandmother Jing Samuel Mother Concetta Giraldo Mother's Brother Jalen Rothsumitdionne Sister Social History Tobacco Use Types Packs/Day Years Used Date Smoking Tobacco: Light Smoker Pipe Started: 2004 Passive Smoke Exposure: Past Smokeless Tobacco: Never Tobacco Cessation:Ready to Q uit: Not Asked; Counseling Given: Not Answered Comments:Smokes pipe but does not inhale much Alcohol Use Standard Drinks/Week Comments Yes 0 (1 standard drink = 0.6 oz pur e alcohol) 21 oz per week AUDIT-C Answer Date Recorded Q1: How often do you have a drink containing alcohol? 4 or more times a week 04/29/2025 Q2: How many drinks containi ng alcohol do you have on a typical day when you are drinking? 1 or 2 Q3: How often do you have si x or more drinks on one occasion? Never 04/29/2025 PHQ-2 Answer Date Recorded PHQ-2 Total Score (If total score is 3 or more points, staff should administer the PHQ-9) 0 08/01/2024 Hunger Vital Sign Answer Date Recorded Within the past 12 months, y ou worried that your food would run out before you got the money to buy more. Never true 02/26/20 25 Within the past 12 months, t he food you bought just didn't last and you didn't have money to get more. Never true 02/25/2025 Sex and Gender Information Value Date Recorded Sex Assigned at Not on file Legal Sex Male 8:05 AM [employer] Gender Identity Male 10/27/2020 8:46 AM [employer] Sexual Orientation Straight 05/07/2019 2: 23 PM CDT Occupation Industry Job Start Date Job End Date professor Not on file Not on file Not on file Obstetrics History Last Filed Vital Signs Vital Sign Reading Time Taken Comments Blood Pressure 161/107 05/21/2025 2:47 PM CDT Pulse 101 05/21/2025 2:47 PM CDT Temperature 36.2 C (97.1 F) 05/21/2025 2:47 PM CDT Respiratory Rate 16 05/21/2025 2:47 PM CDT Oxygen Saturation 95% 05/21/2025 2:47 PM CDT Inhaled Oxygen Concentration - - Weight 115.7 kg (255 lb) 05/21/2025 2:47 PM CDT Height 170.2 cm (5' 7) 05/21/2025 2:47 PM CDT Body Mass Index 39.94 05/21/2025 2:47 PM CDT Plan of Treatment Health Maintenance Due Date Last Done Comments Pneumococcal vaccine <65 (1 of 2 - PCV) 1982 Covid-19 Vaccine (5 - 2024-2 6 season) 2025 06/29/2022, 02/05/2022, 10/06/2021, Additional history exists Influenza Vaccine (#1) 2025 , 07/24/2024, 07/24/2023, Additional history exists Depression Screening 08/01/2025 08/01/2024, 02/28/2023, 02/25/2022, Additional history exists Regular Well Visit/Exam 18-64 08/01/2025, 08/01/2024, 02/28/2023, Additional history exists Prostate Cancer Screening-PSA 08/01/2026, 02/28/2023, 09/06/2022, Additional history exists Colon Cancer Screening-Colonoscopy 03/23/2027 03/23/2017 DTaP/Tdap/Td Vaccine (2 - Td or Tdap) 03/27/2027 03/27/2017 Hepatitis C Screening Completed 10/23/2016 Colon Cancer Screening-CT Colonography Discontinued 03/23/2017 Colon Cancer Screening-DNA Stool Discontinued 03/23/20 17 Colon Cancer Screening-FIT Discontinued 03/23/2017 Colon Cancer Screening-Sigmoidoscopy Discontinued 03/23/2017 Zoster Vaccine Completed 07/18/2022, 05/15/2022 Hepatitis B Screening Completed 08/01/2024 Goals Goal Patient Goal Type Associated Problems Recent Progress Patient-Stated? Author CCM Chronic Pain Care Plan Chronic Care Management On track(2024 12:55 PM CDT) Nitza Vázquez, RN Note: Problem: Chronic Pain Goals: 1. Minimize further functional decline 2. Maximize quality of life 3. Control pain Strategies: - Activity/exercise program recommendation - Conservative stepwise pain medicine strategy with multi-disciplinary approach - Recommend healthy lifestyle strategies and compensatory methods as needed Medical Devices Implanted Type Area Sample Case Porter Device Identifier Shelf Expiration Date Model / Serial / Lot Stephen Right Shoulder Shoulder Synthes 204.824 3.5mm 6mm 24mm 2.5mm Self Tap Small Hexagonal Socket Low Profile - S.0 - [id number] Implanted:Qty: 2 on 10/13/2020 by Enid Mandel MD at [facility] Synthes I 204.824 / .0 / Synthes 204.844 3.5mm 6mm 44mm 2.5mm Self Tap Small Hexagonal Socket Low Profile - S.0 - [id number] Implanted:Qty: 1 on 10/13/2020 by Enid Mandel MD at [facility] Synthes I 204.844 / .0 / Synthes 212.104 3.5mm 2.9mm 16mm Self Tap Lock Stardrive Conical Head T15 Full - S.0 - [id number] Implanted:Qty: 1 on 10/13/2020 by Enid Mandel MD at [facility] Synthes I 212.104 / .0 / Synthes 212.106 3.5mm 2.9mm 20mm Self Tap Lock Stardrive Conical Head T15 Full - S.0 - [id number] Implanted:Qty: 1 on 10/13/2020 by Enid Mandel MD at [facility] Synthes I 212.106 / .0 / Synthes 204.826 3.5mm 6mm 26mm 2.5mm Self Tap Small Hexagonal Socket Low Profile - S.0 - [id number] Implanted:Qty: 1 on 10/13/2020 by Enid Mandel MD at [facility] Synthes I 204.826 / .0 / Medtronic Sofamor [place] [id number] Infuse 14mm 23mm Absorbable Sponge Sterile Water Syringe Needle - S.0 - [id number] Implanted:Qty: 1 on 10/13/2020 by Enid Mandel MD at [facility] Med[employer] Inc 06/22/2021 [id number] / .0 / [id number] Synthes 204.834 3.5mm 6mm 34mm 2.5mm Self Tap Small Hexagonal Socket Low Profile - S.0 - [id number] Implanted:Qty: 2 on 10/13/2020 by Enid Mandel MD at [facility] Synthes I 204.834 / .0 / Synthes 204.838 3.5mm 6mm 38mm 2.5mm Self Tap Small Hexagonal Socket Low Profile - S.0 - [id number] Implanted:Qty: 1 on 10/13/2020 by Enid Mandel MD at [facility] Synthes I 204.838 / .0 / Synthes 02.112.527 Lcp Combi 213mm 12 Hole Low Bend Low Profile Round Edge Tibia - S.0 - [id number] Implanted:Qty: 1 on 10/13/2020 by Enid Mandel MD at [facility] Synthes I 02.112.527 / .0 / Synthes 204.828 3.5mm 6mm 28mm 2.5mm Self Tap Small Hexagonal Socket Low Profile - S.0 - [id number] Implanted:Qty: 2 on 10/13/2020 by Enid Mandel MD at [facility] Synthes I 204.828 / .0 / Synthes 204.836 3.5mm 6mm 36mm 2.5mm Self Tap Small Hexagonal Socket Low Profile - S.0 - [id number] Implanted:Qty: 1 on 10/13/2020 by Enid Mandel MD at [facility] Synthes I 204.836 / .0 / Synthes 204.830 3.5mm 6mm 30mm 2.5mm Self Tap Small Hexagonal Socket Low Profile - S.0 - [id number] Implanted:Qty: 1 on 10/13/2020 by Enid Mandel MD at [facility] Synthes I 204.830 / .0 / Synthes 204.842 3.5mm 6mm 42mm 2.5mm Self Tap Small Hexagonal Socket Low Profile - S.0 - [id number] Implanted:Qty: 1 on 10/13/2020 by Enid Mandel MD at [facility] Synthes I 204.842 / .0 / Procedures Procedure Name Priority Date/Time Associated Diagnosis Comments CBC WITHOUT DIFFERENTIAL Routine 07/07/2025 11:37 AM CDT Iron deficiency anemia, unspecified iron deficiency anemia type IRON PROFILE W/ IBC Routine 07/07/2025 1 1:37 AM CDT Iron deficiency anemia, unspecified iron deficiency anemia type FERRITIN Routine 07/07/2025 11:37 AM CDT Iron deficiency anemia, unspecified iron deficiency anemia type VITAMIN B12 Routine 06/16/2025 12:33 PM CDT JAK2 V617F MUTATION QUANTITATIVE Routine 06/16/2025 12:33 PM CDT Fatigue, unspecified type Polycythemia FOLATE Routine 06/16/2025 12:33 PM CDT Fatigue, unspecified type Polycythemia CBC WITH AUTO DIFFERENTIAL Routine 06/16/2025 12:33 PM CDT Fatigue, unspecified type Polycythemia TRANSTHORACIC ECHO (TTE) COMPLETE W DOPPLER/CF W CONTRAST Routine 05/20/2025 10:55 AM CDT Fatigue, unspecified type Shortness of breath Primary hypertension MCT - MOBILE CARDIAC TELEMETRY EVENT MONITOR Routine 05/20/2025 10:53 AM CDT Fatigue, unspecified type Shortness of breath Tachycardia Palpitations FERRITIN Routine 05/19/2025 1:01 PM CDT Iron deficiency anemia, unspecified iron deficiency anemia type IRON PROFILE W/ IBC Routine 05/19/2025 1 :01 PM CDT Iron deficiency anemia, unspecified iron deficiency anemia type ECG 12-LEAD Routine 05/13/2025 4:59 PM CDT Fatigue, unspecified type Shortness of breath DIFFERENTIAL AUTO Routine 05/13/2025 11: 58 AM CDT Fatigue, unspecified type Shortness of breath PRO B-TYPE NATRIURETIC PEPTIDE Routine 05/13/2025 11:58 AM CDT Fatigue, unspecified type Shortness of breath CBC WITH AUTO DIFFERENTIAL Routine 05/13/2025 11:58 AM CDT Fatigue, unspecified type Shortness of breath PSA, TOTAL AND FREE Routine 08/01/2024 1 2:51 PM CDT Preventative health care Elevated PSA COLONOSCOPY Routine 03/23/2017 HEPATITIS C SCREENING Routine 10/23/2016 from Last 3 Months or Most Recently Relevant to Health Maintenance Results * (ABNORMAL) Iron profile w/ IBC (07/07/2025 11:37 AM CDT) Iron 27(L) 50 - 180 mcg/dL [facility] TIBC 402 250 - 425 mcg/dL (calc) [facility] Iron saturation 7(L) 20 - 48 % (calc) [facility] Blood 07/07/2025 11:3 7 AM CDT 07/07/2025 11:38 AM CDT Narrative [facility] - 07/08/2025 5:44 AM CDT FASTING:NO FASTING: NO Jadiel Ro [facility] BLOOD ORDERABLES Final Result [address] [address] [place] [address] * (ABNORMAL) CBC without differential (07/07/2025 11:37 AM CDT) WBC 5.2 3.8 - 10.8 Thousand/u L [facility] RBC, POC 4.12(L) 4.20 - 5.80 Million/uL [facility] Hgb 12.1(L) 13.2 - 17.1 g/dL [facility] Hct 39.6 38.5 - 50.0 % [facility] MCV 96.1 80.0 - 100.0 fL [facility] MCH 29.4 27.0 - 33.0 pg [facility] MCHC 30.6(L) 32.0 - 36.0 g/dL [facility] Comment: For adults, a slight decrease in the calculated MCHC value (in the range of 30 to 32 g/dL) is most likely not clinically significant; however, it should be interpreted with caution in correlation with other red cell parameters and the patient's clinical condition. Rdw 15.3(H) 11.0 - 15.0 % [facility] Platelets 253 140 - 400 Thousand/u L [facility] MPV 9.9 7.5 - 12.5 fL [facility] Blood 07/07/2025 11:3 7 AM CDT 07/07/2025 11:38 AM CDT Narrative [facility] - 07/08/2025 5:44 AM CDT FASTING:NO FASTING: NO Jadiel Ro [facility] BLOOD ORDERABLES Final Result [facility] [address] [place] [address] * Ferritin (07/07/2025 11:37 AM CDT) [facility] Ferritin 34 24 - 380 ng/mL [facility] Blood 07/07/2025 11:3 7 AM CDT 07/07/2025 11:38 AM CDT Narrative [facility] - 07/08/2025 5:44 AM CDT FASTING:NO FASTING: NO Jadiel Ro [facility] BLOOD ORDERABLES Final Result [facility] [address] [place] [phone] * JAK2 V617F Mutation Quantitative (06/16/2025 12:33 PM CDT) Pathologist [facility] Gaucher disease NA [facility], Specimen Source NA [facility] /[facility], Block/specimen id NA Qu est [employer] /[facility], JAK2 V617F Mutation NOT DETECTED NOT DETECTED [facility], JAK2 Interpretation SEE NOTE [facility] [employer] /[facility], Comment: A JAK2 V617F mutation is not detected. This data was reviewed and interpreted by Da Mckinney, PhD. LEIF(KAREN) JAK2 Assay Details SEE NOTE Q uest [employer] /[facility], Comment: This PCR-based advanced sequencing assay interrogates DNA from leukocytes for the presence of mutations in codon 617 of JAK2. The sensitivity of mutation detection is 5%. Alterations outside of the tested areas of this gene will not be detected. Synonymous or known non-synonymous polymorphic changes (SNPs) are not reported. JAK2 V617F mutation is associated with myeloproliferative neoplasms (MPNs), including polycythemia vera (PV), essential thrombocythemia (ET) and primary myelofibrosis (PMF), and a small subset of other myeloid neoplasms. Increasing allele burden of JAK2 V617F in MPNs has been shown in a number of studies to be associated with increased symptoms including pruritis, splenomegaly, and leukocytosis. Results of this assay should be correlated with morphology and other laboratory testing for final diagnosis and classification. If this test is negative, additional testing that may be useful for workup of MPNs, depending on presenting hematologic features, includes BCR-ABL1 rearrangement (test code 42616 or 57696F) or mutational analysis of CALR (ET/PMF, 71463), JAK2 exon 12 (PV, 43291), MPL (ET/PMF, 17902) or CSF3R (chronic neutrophilic leukemia, 97808). Residual material from this sample may be used except for BCR-ABL1 testing; call lab to add. DNA was aligned to GRCh37(hg19) for analysis and transcript ID [id number] was used as reference for JAK2 sequence. For additional information, please refer to http://education.Heartscape.GoNabit/faq/RUH900 (This link is being provided for informational/educational purposes only.) This test was developed and its analytical performance characteristics have been determined by [facility]. It has not been cleared or approved by FDA. This assay has been validated pursuant to the CLIA regulations and is used for clinical purposes. Blood 06/16/2025 12:3 3 PM CDT 06/16/2025 12:34 PM CDT Jadiel Ro [facility] LAB BLOOD ORDERABLES Final Result [facility], [address] [address] [facility] [place] [address] * (ABNORMAL) CBC with auto differential (06/16/2025 12:33 PM CDT) Pathologist [facility] WBC 5.0 3.8 - 10.8 Thousand/u L [facility] RBC, POC 3.90(L) 4.20 - 5.80 Million/uL [facility] Hgb 11.4(L) 13.2 - 17.1 g/dL [facility] Hct 36.5(L) 38.5 - 50.0 % [facility] MCV 93.6 80.0 - 100.0 fL [facility] MCH 29.2 27.0 - 33.0 pg [facility] MCHC 31.2(L) 32.0 - 36.0 g/dL [facility] Comment: For adults, a slight decrease in the calculated MCHC value (in the range of 30 to 32 g/dL) is most likely not clinically significant; however, it should be interpreted with caution in correlation with other red cell parameters and the patient's clinical condition. Rdw 13.5 11.0 - 15.0 % [facility] Platelets 300 140 - 400 Thousand/u L [facility] MPV 9.9 7.5 - 12.5 fL [facility] Neutrophils, abs 2,650 1,500 - 7,800 cells/uL [facility] Lymphocytes, abs 1,445 850 - 3,900 cells/uL [facility] Monocyte abs 745 200 - 950 cells/uL [facility] Eosinophils, abs 100 15 - 500 cells/uL [facility] Basophils, abs 60 0 - 200 cells/uL [facility] Neutrophils 53 % [facility] Lymphocyte pct 28.9 % [facility] Monocytes 14.9 % [facility] Eosinophils 2.0 % [facility] Basophils 1.2 % [facility] Blood 06/16/2025 12:3 3 PM CDT 06/16/2025 12:34 PM CDT Jadiel Ro [facility] LAB BLOOD ORDERABLES Final Result [facility] [address] [place] [address] * Folate (06/16/2025 12:33 PM CDT) Pathologist [facility] Folate, Serum 12.4 ng/mL [facility] Comment: Reference Range Low: <3.4 Borderline: 3.4-5.4 Normal: >5.4 Blood 06/16/2025 12:3 3 PM CDT 06/16/2025 12:34 PM CDT Jadiel Ro [facility] LAB BLOOD ORDERABLES Final Result Performing Organization Address [facility]/ZIP Co de Phone Number [employer] [facility] [address] [place] [address] * Vitamin B12 (06/16/2025 12:33 PM CDT) Pathologist [facility] Vitamin B12 746 200 - 1,100 pg/mL [facility] 06/16/2025 12:3 3 PM CDT 06/16/2025 12:34 PM CDT Jadiel Ro [facility] LAB BLOOD ORDERABLES Final Result Performing Organization Address City/[facility]/ZIP Co de Phone Number [facility] [address] [place] [address] * TRANSTHORACIC ECHO (TTE) COMPLETE W DOPPLER/CF W CONTRAST (05/20/2025 10:55 AM CDT) EF Mod BP 58 % CONS SCIMAGE Anatomical Region Laterality Modality Ultrasound 05/20/2025 9:43 AM CDT Narrative 05/20/2025 3:14 PM CDT [facility] [place] [address] Transthoracic Echocardiographic Report Patient Name: GARY GIRALDO : 1965 (59y 5m) Gender: M Study Date: 05/20/2025 09:43:34 Ht(Inch): 67 Wt(Lb): 255.95 BSA: 2.34 Machine Made Shoe Unit Worker: Francoise Benz RDCS Location: [facility] Order Provider: JADIEL RO Heart Rate: 84 BMI: 40.08 BP: 171 / 109 Ref Provider: JADIEL RO PROCEDURES: Echocardiographic Report: Transthoracic complete echo with strain imaging and contrast, 2D, spectral and tissue Doppler, color flow Doppler, M-mode. Contrast: Contrast Enhancement was Employed: Due to suboptimal image quality with inadequate visualization of at least 2 of 16 LV wall segments in any view after initial imaging. Perflutren contrast was administered using the volume necessary to obtain adequate images. 0.8 ml Optison Administered, (2.2 ml wasted). INDICATIONS: R53.83 Other fatigue, R06.02 Shortness of breath, and I10 Essential (primary) hypertension. CONCLUSIONS: 1. Normal left ventricular size based on volume index. Normal LV wall thickness. Normal left ventricular systolic function. The Ejection Fraction (Montejo's) is measured at 58 %. Grade I diastolic dysfunction (normal LA pressure). Unable to assess global longitudinal strain due to image quality. No left ventricular thrombus visualized. 2. There are no regional wall motion abnormalities. 3. Normal right ventricular size. Normal right ventricular systolic function. 4. Mild tricuspid regurgitation. 5. No pericardial effusion. 6. Normal aortic root and ascending aorta size when indexed to body surface area. 7. Normal estimated PASP. ATTESTATION: I have personally reviewed and interpreted this study without fellow or resident. - DISCLAIMER: The study images and the final report will be retained in the patient chart by the Echo Laboratory for the legally required time period. This chart constitutes the legal record of any testing performed. FINDINGS: Left Ventricle: Normal left ventricular size based on volume index. Normal LV wall thickness. Normal left ventricular systolic function. The Ejection Fraction (Montejo's) is measured at 58 %. Grade I diastolic dysfunction (normal LA pressure). Unable to assess global longitudinal strain due to image quality. No left ventricular thrombus visualized. Regional Wall Motion: There are no regional wall motion abnormalities. Right Ventricle: Normal right ventricular size. Normal right ventricular systolic function. Left Atrium: The left atrium is normal in size. Right Atrium: The right atrium is normal in size. Mitral Valve: Normal mitral valve structure. No mitral regurgitation. No stenosis present. Aortic Valve: Normal trileaflet aortic valve. No aortic regurgitation. No aortic valve stenosis. The mean transaortic gradient is 2 mmHg. The aortic valve area by the continuity equation (using VTI) is 4.82 cm2. Aortic valve dimensionless index is 0.98. Tricuspid Valve: Normal tricuspid valve structure. Mild tricuspid regurgitation. No tricuspid valve stenosis. Pulmonic Valve: Normal pulmonic valve structure. No pulmonic regurgitation. No pulmonic valve stenosis present. Pericardium: Normal pericardium without pericardial effusion. Aorta: Mild aortic root dilation at sinuses of Valsalva. Normal aortic root size when indexed. The ascending aorta is normal in size when indexed. IVC: IVC not visualized due to poor acoustic windows. PASP: Normal estimated pulmonary artery systolic pressure. Rhythm: Normal Sinus rhythm was seen during the study. MEASUREMENTS: 2D/MM Value Range Doppler Value Range LVIDd 2D 4.74 cm [ 4.20 - 5.80 ] AV Peak Jorden 1.0 m/s [ 1.0 - 1.7 ] LVIDs 2D 3.19 cm [ 2.50 - 4.00 ] AV Peak PG 4.00 mmHg IVSd 2D 0.93 cm [ 0.60 - 1.00 ] AV Mean PG 2 mmHg LVPWd 2D 0.82 cm [ 0.60 - 1.00 ] AV VTI 17.1 cm LV Thickness Ratio 1.1 LVOT Peak Jorden 0.9 m/s [ 0.7 - 1.1 ] LV FS 2D 32.74 % [ 25.00 - 43.00 ] LVOT Peak PG 3.24 mmHg LV Mass 2D 142.84 g LVOT Mean PG 2 mmHg LV Mass Index 2D 60.97 g/m2 LVOT VTI 16.8 cm RWT 0.35 LVOT Diam 2.50 cm EDV Mod BP 97.11 ml [ 62.00 - 150.00 ] LINDA VTI 4.82 cm2 LV EDV Index 41.45 ml/m2 LVOT/AV VTI 0.98 - Dimensionless index (DVI) ESV Mod BP 41.19 ml [ 21.00 - 61.00 ] MV E Peak Jorden 0.6 m/s [ 0.6 - 1.3 ] EF Mod BP 58 % [ 52 - 72 ] MV A Peak Jorden 0.7 m/s [ 1.0 - 1.2 ] LA Length 4C 5.94 cm MV E/A 0.9 ratio [ 0.8 - 1.5 ] RV Base Dimen 2D 3.7 cm [ 2.5 - 4.2 ] MV Decel Time 148.63 msec [ 104.00 - 258.00 ] TAPSE 1.68 cm [ 1.71 - 5.00 ] Med E` Jorden 5.6 cm/sec [ 8.0 - 25.0 ] RA Volume 43.36 ml Lat E` Jorden 8.4 cm/sec [ 10.0 - 25.0 ] RA Volume Index 18.51 ml/m2 Average E/E` 8.57 AoR Diam 2D 4.12 cm [ 3.10 - 3.70 ] RV S` 12.07 cm/sec Ao Root Index 1.76 cm/m2 [ 1.00 - 2.00 ] TR Peak Jorden 2.4 m/s [ 1.0 - 2.8 ] Asc Ao Diam 2D 3.77 cm TR Peak PG 23.0 mmHg Asc Ao Index 1.61 cm/m2 PV Peak Jorden 1.0 m/s [ 0.4 - 0.8 ] PV Peak PG 4.00 mmHg Electronically Signed By: Ramon Dueñas MD 05/20/2025 15:14:21 CDT Procedure Note Ramon Dueñas MD - 05/20/2025 [facility] [place] [address] Transthoracic Echocardiographic Report Patient Name: GARY GIRALDO : 1965 (59y 5m) Gender: M Study Date: 05/20/2025 09:43:34 Ht(Inch): 67 Wt(Lb): 255.95 BSA: 2.34 Machine Made Shoe Unit Worker: Francoise Benz RONI Location: [facility] Order Provider:JADIEL RO Heart Rate: 84 BMI: 40.08 BP: 171 / 109 Ref Provider: JADIEL RO PROCEDURES: Echocardiographic Report: Transthoracic complete echo with strain imagingand contrast, 2D, spectral and tissue Doppler, color flow Doppler, M-mode. Contrast: Contrast Enhancement was Employed: Due to suboptimal imagequality with inadequate visualization of at least 2 of 16 LV wall segments in any viewafter initial imaging. Perflutren contrast was administered using the volume necessaryto obtain adequate images. 0.8 ml Optison Administered, (2.2 ml wasted). INDICATIONS: R53.83 Other fatigue, R06.02 Shortness of breath, and I10 Essential(primary) hypertension. CONCLUSIONS: 1. Normal left ventricular size based on volume index. Normal LV wallthickness. Normal left ventricular systolic function. The Ejection Fraction (Montejo's) ismeasured at 58 %. Grade I diastolic dysfunction (normal LA pressure). Unable to assessglobal longitudinal strain due to image quality. No left ventricular thrombusvisualized. 2. There are no regional wall motion abnormalities. 3. Normal right ventricular size. Normal right ventricular systolicfunction. 4. Mild tricuspid regurgitation. 5. No pericardial effusion. 6. Normal aortic root and ascending aorta size when indexed to bodysurface area. 7. Normal estimated PASP. ATTESTATION: I have personally reviewed and interpreted this study without fellow orresident. - DISCLAIMER: The study images and the final report will be retained in the patientchart by the Echo Laboratory for the legally required time period. This chart constitutesthe legal record of any testing performed. FINDINGS: Left Ventricle: Normal left ventricular size based on volume index. NormalLV wall thickness. Normal left ventricular systolic function. The EjectionFraction (Montejo's) is measured at 58 %. Grade I diastolic dysfunction (normal LA pressure).Unable to assess global longitudinal strain due to image quality. No left ventricularthrombus visualized. Regional Wall Motion: There are no regional wall motion abnormalities. Right Ventricle: Normal right ventricular size. Normal right ventricularsystolic function. Left Atrium: The left atrium is normal in size. Right Atrium: The right atrium is normal in size. Mitral Valve: Normal mitral valve structure. No mitral regurgitation. Nostenosis present. Aortic Valve: Normal trileaflet aortic valve. No aortic regurgitation. Noaortic valve stenosis. The mean transaortic gradient is 2 mmHg. The aortic valve areaby the continuity equation (using VTI) is 4.82 cm2. Aortic valve dimensionlessindex is 0.98. Tricuspid Valve: Normal tricuspid valve structure. Mild tricuspidregurgitation. No tricuspid valve stenosis. Pulmonic Valve: Normal pulmonic valve structure. No pulmonicregurgitation. No pulmonic valve stenosis present. Pericardium: Normal pericardium without pericardial effusion. Aorta: Mild aortic root dilation at sinuses of Valsalva. Normal aorticroot size when indexed. The ascending aorta is normal in size when indexed. IVC: IVC not visualized due to poor acoustic windows. PASP: Normal estimated pulmonary artery systolic pressure. Rhythm: Normal Sinus rhythm was seen during the study. MEASUREMENTS: 2D/MM Value Range DopplerValue Range LVIDd 2D 4.74 cm [ 4.20 - 5.80 ] AV Peak Vel1.0 m/s [ 1.0 - 1.7 ] LVIDs 2D 3.19 cm [ 2.50 - 4.00 ] AV Peak PG4.00 mmHg IVSd 2D 0.93 cm [ 0.60 - 1.00 ] AV Mean PG2 mmHg LVPWd 2D 0.82 cm [ 0.60 - 1.00 ] AV VTI17.1 cm LV Thickness Ratio 1.1 LVOT Peak Vel0.9 m/s [ 0.7 - 1.1 ] LV FS 2D 32.74 % [ 25.00 - 43.00 ] LVOT Peak PG3.24 mmHg LV Mass 2D 142.84 g LVOT Mean PG2 mmHg LV Mass Index 2D 60.97 g/m2 LVOT VTI16.8 cm RWT 0.35 LVOT Diam2.50 cm EDV Mod BP 97.11 ml [ 62.00 - 150.00 ] LINDA VTI4.82 cm2 LV EDV Index 41.45 ml/m2 LVOT/AV VTI0.98 - Dimensionless index (DVI) ESV Mod BP 41.19 ml [ 21.00 - 61.00 ] MV E Peak Vel0.6 m/s [ 0.6 - 1.3 ] EF Mod BP 58 % [ 52 - 72 ] MV A Peak Vel0.7 m/s [ 1.0 - 1.2 ] LA Length 4C 5.94 cm MV E/A0.9 ratio [ 0.8 - 1.5 ] RV Base Dimen 2D 3.7 cm [ 2.5 - 4.2 ] MV Decel Hnnv398.63 msec [ 104.00 - 258.00 ] TAPSE 1.68 cm [ 1.71 - 5.00 ] Med E` Vel5.6 cm/sec [ 8.0 - 25.0 ] RA Volume 43.36 ml Lat E` Vel8.4 cm/sec [ 10.0 - 25.0 ] RA Volume Index 18.51 ml/m2 Average E/E`8.57 AoR Diam 2D 4.12 cm [ 3.10 - 3.70 ] RV S`12.07 cm/sec Ao Root Index 1.76 cm/m2 [ 1.00 - 2.00 ] TR Peak Vel2.4 m/s [ 1.0 - 2.8 ] Asc Ao Diam 2D 3.77 cm TR Peak PG23.0 mmHg Asc Ao Index 1.61 cm/m2 PV Peak Vel1.0 m/s [ 0.4 - 0.8 ] PV Peak PG 4.00 mmHg Electronically Signed By: Ramon Dueñas MD 05/20/2025 15:14:21 CDT us Jadiel Ro [facility] CV ECHO PROCEDURES Final R esult * MCT Mobile Cardiac Telemetry Event Monitor (05/20/2025 10:53 AM CDT) Anatomical Region Laterality Modality Electrocardiogra phy 05/20/2025 10:5 5 AM CDT Narrative 07/02/2025 1:21 PM CDT [facility] [place] [address] CARDIAC EVENT MONITOR REPORT Patient Name: GARY GIRALDO : 1965 (59y 5m) Sex: M Study Date: 05/20/2025 10:55:22 AM Ht(Inch): Wt(Lb): BSA: Tech: Location: [facility] Order Provider: JADIEL RO BMI: Ref Provider: JADIEL RO PROCEDURES: Enrollment Period: 2025-05-20 00:00:00 through 2025-06-18 00:00:00. Hookup: Hookup Tech: Trudy Fall. Patient Instructions: Patient understood directions and use of equipment (Patient Hookup at Home), tech educated patient and applied the monitor, patient picked up device from office and understand directions and use of the equipment and patient given monitor in office during appointment, patient understands directions and use of equipment. Location: [facility]. INDICATIONS: R53.83 Other fatigue, R06.02 Shortness of breath, R00.0 Tachycardia, unspecified, and R00.2 Palpitations. FINDINGS: Event Data: Min Rate: 26 BPM Min Rate Timestamp: 2025-05-21 19:49:00 Max Rate: 158 BPM Max Rate Timestamp: 2025-06-08 22:14:00 Mean Rate: 92 BPM SIGNIFICANT PAUSES: 1 >3 sec SUMMARY: The patient's monitoring period was 05/20/2025 - 06/18/2025. Baseline sample showed Sinus Tachycardia with a heart rate of 110.4 bpm. There were 0 critical, 5 serious, and 3 stable events that occurred. Multiple runs of slow heart rate down in the 30s. CONCLUSIONS: 1. The patient's monitoring period was 05/20/2025 - 06/18/2025. Baseline sample showed Sinus Tachycardia with a heart rate of 110.4 bpm. There were 0 critical, 5 serious, and 3 stable events that occurred. Multiple runs of slow heart rate down in the 30s. 2. I have reviewed the PDF and all the ECG strips. I agree with the interpretations as detailed in the report. 3. The PDF can be found in the [facility] Patient chart. Please go to the Cardiology tab, click on the holter or event exam. Scroll to bottom where the ORDER-LEVEL Documents reside and click the blue link to the pdf. Electronically Signed By: Luis Antonio Arriaga Jr., M.D. 07/02/2025 12:18:32 PM CDT Procedure Note Luis Antonio Arriaga MD PhD - 07/02/2025 [facility] [place] [address] CARDIAC EVENT MONITOR REPORT Patient Name: GARY GIRALDO : 1965 (59y 5m) Sex: M Study Date: 05/20/2025 10:55:22 AM Ht(Inch): Wt(Lb): BSA: Tech: Location: [facility] Order Provider: JADIEL RO BMI: Ref Provider: JADIEL RO PROCEDURES: Enrollment Period: 2025-05-20 00:00:00 through 2025-06-18 00:00:00. Hookup: Hookup Tech: Trudy Fall. Patient Instructions: Patient understood directions and use of equipment(Patient Hookup at Home), tech educated patient and applied the monitor, patient picked updevice from office and understand directions and use of the equipment and patientgiven monitor in office during appointment, patient understands directions and use ofequipment. Location: [facility]. INDICATIONS: R53.83 Other fatigue, R06.02 Shortness of breath, R00.0 Tachycardia,unspecified, and R00.2 Palpitations. FINDINGS: Event Data: Min Rate: 26 BPM Min Rate Timestamp: 2025-05-21 19:49:00 Max Rate: 158 BPM Max Rate Timestamp: 2025-06-08 22:14:00 Mean Rate: 92 BPM SIGNIFICANT PAUSES: 1 >3 sec SUMMARY: The patient's monitoring period was 05/20/2025 - 06/18/2025.Baseline sample showed Sinus Tachycardia with a heart rate of 110.4 bpm. There were 0critical, 5 serious, and 3 stable events that occurred. Multiple runs of slow heartrate down in the 30s. CONCLUSIONS: 1. The patient's monitoring period was 05/20/2025 - 06/18/2025. Baselinesample showed Sinus Tachycardia with a heart rate of 110.4 bpm. There were 0 critical, 5serious, and 3 stable events that occurred. Multiple runs of slow heart rate down in the30s. 2. I have reviewed the PDF and all the ECG strips. I agree with theinterpretations as detailed in the report. 3. The PDF can be found in the [facility] Patient chart. Please go to theCardiology tab, click on the holter or event exam. Scroll to bottom where the ORDER-LEVELDocuments reside and click the blue link to the pdf. Electronically Signed By: Luis Antonio Arriaga Jr., M.D. 07/02/2025 12:18:32 PM CDT Jadiel Ro [facility] CV CARDIAC SERVICES PROCED URES Final Result * Iron profile w/ IBC (05/19/2025 1:01 PM CDT) Pathologist [facility] Iron 171 50 - 180 mcg/dL [facility] TIBC 394 250 - 425 mcg/dL (calc) [facility] Iron saturation 43 20 - 48 % (calc) [facility] Blood 05/19/2025 1:01 PM CDT 05/19/2025 1:02 PM CDT Jadiel Ro [facility] LAB BLOOD ORDERABLES Final Result Performing Organization Address [facility] Co de Phone Number [facility] [address] [place] [address] * Ferritin (05/19/2025 1:01 PM CDT) [facility] Ferritin 38 24 - 380 ng/mL [facility] Blood 05/19/2025 1:01 PM CDT 05/19/2025 1:02 PM CDT Jadiel Ro [facility] LAB BLOOD ORDERABLES Final Result Performing Organization Address [facility]/ZIP Co de Phone Number [facility] [address] [place] [address] * ECG 12-LEAD (05/13/2025 4:59 PM CDT) Narrative Keyona Lyons - 05/13/2025 4:59 PM CDT Jadiel Ro DNP 05/13/2025 5:01 PM ECG 12 lead Date/Time: 05/13/2025 4:59 PM Performed by: Jadiel Ro DNP Authorized by: Jadiel Ro DNP Comparison: compared with previous ECG from 02/25/2022 Similar to previous ECG Rhythm: sinus rhythm Rate: normal BPM: 89 QRS axis: left Conduction: LAFB Other findings: PRWP Clinical impression: non-specific ECG Comments: Reviewed with Dr. Murray Procedure Note Jadiel Ro DNP - 05/13/2025 11:00 AM CDT ECG 12 lead Date/Time: 05/13/2025 4:59 PM Performed by: Jadiel Ro DNP Authorized by: Jadiel Ro DNP Comparison: compared with previousECG from 02/25/2022 Similar to previous ECG Rhythm: sinus rhythm Rate: normal BPM: 89 QRS axis: left Conduction: LAFB Other findings: PRWP Clinical impression: non-specific ECG Comments: Reviewed with Dr. Murray Jadiel Ro DNP ECG ORDERABLES Edited Res ult - Final * Differential, auto (05/13/2025 11:58 AM CDT) Pathologist [facility] Neutrophil abs 3.40 1.50 - 6.50 K/cumm Imm gran abs 0.01 0.00 - 0.10 K/cumm [facility] Lymphocyte abs 1.12 0.80 - 3.30 K/cumm [facility] Monocyte abs 0.57 0.20 - 0.80 K/cumm [facility] Eosinophil abs 0.09 0.00 - 0.50 K/cumm [facility] Basophil abs 0.03 0.00 - 0.10 K/cumm [facility] Neutrophil pct 65.1 % [facility] Comment: Interpretive Data Percent cell count reference ranges are not reported, since discordance with absolute values may lead to misinterpretation of CBC data. Current Interpretive Data was last revised on 2018. Imm gran pct 0.2 % [facility] Comment: Interpretive Data Percent cell count reference ranges are not reported, since discordance with absolute values may lead to misinterpretation of CBC data. Current Interpretive Data was last revised on 2018. Lymphocyte pct 21.5 % [facility] Comment: Interpretive Data Percent cell count reference ranges are not reported, since discordance with absolute values may lead to misinterpretation of CBC data. Current Interpretive Data was last revised on 2018. Monocyte pct 10.9 % [facility] Comment: Interpretive Data Percent cell count reference ranges are not reported, since discordance with absolute values may lead to misinterpretation of CBC data. Current Interpretive Data was last revised on 2018. Eosinophil pct 1.7 % [facility] Comment: Interpretive Data Percent cell count reference ranges are not reported, since discordance with absolute values may lead to misinterpretation of CBC data. Current Interpretive Data was last revised on 2018. Basophil pct 0.6 % [facility] Comment: Interpretive Data Percent cell count reference ranges are not reported, since discordance with absolute values may lead to misinterpretation of CBC data. Current Interpretive Data was last revised on 2018. Blood 05/13/2025 11:5 8 AM CDT 05/13/2025 2:26 PM CDT Jadiel Ro [facility] LAB BLOOD ORDERABLES Final Result [facility] Department [place] [address] * Pro B-type natriuretic peptide (05/13/2025 11:58 AM CDT) NT-proBNP 119 <=300 pg/mL Comment: Interpretive Comments: A. Dyspnea in Acute Care Setting All Ages: < 300 pg/ml, acute heart failure unlikely. < 50 yrs: 300 - 450 pg/ml, further investigation warranted. > 450 pg/ml, acute heart failure likely. 50 - 74 yrs: 300 - 900 pg/ml, further investigation warranted. > 900 pg/ml, acute heart failure likely . > or = 75 yrs: 450 - 1800 pg/ml, further investigation warranted. > 1800 pg/ml, acute heart failure likely. B. Non-acute Setting < 75 yrs < 125 pg/ml, rules out heart failure. > or = 125 pg/ml, further investigation warranted. > or = 75 yrs < 450 pg/ml, rules out heart failure. > or = 450 pg/ml, further investigation warranted. - Knowledge of each individual patient's NT-proBNP range may be more useful than using similar cut-points for every patient. Please note that marked elevations in NT-proBNP levels may be observed in state other than Left Ventricular Congestive Failure, including: acute coronary syndromes, right heart strain/failure (including pulmonary embolism and cor pulmonale), critical illness, renal failure, as well as advanced age. - References: 1. Keon BLANCHARD et.al. Eur Heart J. 2006:27:330-337. 2. Giana PEREZ, Delfin MONTAGUE. J. AM Liliana Cardiol: Cardiovasc Imag. 2009;2: 216- 225. Interpretive Data Last Revised Date: 2018. Blood 05/13/2025 11:5 8 AM CDT 05/13/2025 2:26 PM CDT Jadiel Ro [facility] LAB BLOOD ORDERABLES Final Result [facility] [facility] Department [place] [address] * (ABNORMAL) CBC with auto differential (05/13/2025 11:58 AM CDT) Pathologist [facility] WBC 5.22 3.80 - 9.90 K/cumm Hgb 12.0(L) 13.0 - 17.5 g/dL [facility] Hct 35.7(L) 38.9 - 50.3 % [facility] Plt 267 150 - 400 K/cumm [facility] MPV 9.9 9.1 - 12.3 fL [facility] RBC 3.93(L) 4.30 - 5.80 M/cumm [facility] MCV 90.8 81.3 - 96.4 fL [facility] MCH 30.5 27.1 - 33.3 pg [facility] MCHC 33.6 32.3 - 35.7 g/dL [facility] RDW CV 13.0 11.1 - 14.9 % [facility] RDW SD 42.8 35.7 - 48.1 fL [facility] NRBC abs 0.00 0.00 - 0.01 K/cumm [facility] Blood 05/13/2025 11:5 8 AM CDT 05/13/2025 2:26 PM CDT Jadiel Ro DNP LAB BLOOD ORDERABLES Final Result [facility] Department [place] [address] * PSA, total and free (08/01/2024 12:51 PM CDT) Pathologist [facility] PSA-free 0.7 ng/mL [place] [facility] PSA-Total 3.6 <=4.5 ng/mL [facility] PSA-Free/Total Ratio See Footnote [facility] Comment: Ratio not calculated because clinical usefulness is not defined except in range of total PSA 4.0-10.0 ng/mL. ADDITIONAL INFORMATION The testing method is an electrochemiluminescence assay manufactured by [employer] and performed on the Modular or Rox system. Values obtained with different assay methods or kits may be different and cannot be used interchangeably. Test results cannot be interpreted as absolute evidence for the presence or absence of malignant disease. Test Performed by: [place] [id number] [employer] Operator: Lauren Vallejo Ph.D.; CLIA# [id number] Blood 08/01/2024 12:5 1 PM CDT 08/01/2024 2:36 PM CDT Andry Kerns MD LAB BLOOD ORDERABLES Fin al Result [facility] Department [place] [address] [place] [facility] * COLONOSCOPY (03/23/2017) Colonoscopy Normal Historical Provider HEALTH MAINTENANCE Final Result * HEPATITIS C SCREENING (10/23/2016) HEP C Normal Historical Provider HEALTH MAINTENANCE Final Result from Last 3 Months or Most Recently Relevant to Health Maintenance [facility] [id number] [facility] [id number] [facility] [id number] Advance Directives For more information, please contact: [phone] Documents on File Type Date Recorded Patient Engineer Systems Lyssa kennedy ADVANCE DIRECTIVE 04/11/2022 3:04 PM Meagan sandoval [email or web address] Healthcare Agents on File Name Relationship Healthcare Agent Relationship Communication Meagan Wilde Spouse Health Care Agent [email or web address] Perlita Giraldo Sister First Alternate Health Care Agent [email or web address] Care Teams Store Receiver Relationship Specialty Start Date End Date Andry Kerns MD [address] [place] [address] [address] [place] [address] PCP - General 02/15/17 Juan Antonio Lopez DO [address] [place] [address] [address] [place] [address] Surgeon Physical Medicine and Rehabilitation 04/24/18 Dariel Ross MD [address] [place] [address] [address] [place] [address] Surgeon Orthopedic Surgery 04/24/18 Ramon Oliva MD [address] [place], [place] [address] [place] [address] Referring Physician Gastroenterology 04/27/18 Abran Falcon MD [address] [facility] [address] [place] [address] Surgeon Orthopedic Surgery 10/26/18
[2025-07-15 10:44] VITALS: BP 164/93; PULSE 88; RESP 18; TEMP 36.1; O2SAT 97
[2025-07-15] MEDS: LACTATED RINGERS 1,000 ML 150 ML IV CONT (10:52)
--- NOTE | 2025-07-15 10:54 | WPDANESEPPF ---
Anes - Initial Pre Proc Eval Procedure: Operation Date: 07/15/25 11:45 Proposed Procedures p Esophagogastroduodenoscopy - Rashawn Meza MD Date/Time: 07/15/25 10:54 Surgeon: Rashawn Meza MD Pre Op Diagnosis: Personal history of other diseases of the digestiv Patient Data Age: 59 Gender: M Height: 1.75 m Weight: 118.5 kg Last Vital Signs Temp 97 F L 07/15/25 10:44 Pulse 88 07/15/25 10:44 Resp 18 07/15/25 10:44 BP 164/93 H 07/15/25 10:44 Pulse Ox 97 07/15/25 10:44 O2 Del Method Room Air 07/15/25 10:44 Allergies Allergy/AdvReac Type Severity Reaction Status Date / Time gabapentin Allergy Confusion Verified 07/15/25 10:42 naproxen AdvReac Severe Confusion Verified 07/15/25 10:42 Home Medications ?Medication ?Instructions ?Recorded ?Confirmed ?Type rosuvastatin 10 mg tablet 10 mg PO DAILY 11/07/22 07/15/25 History aspirin 81 mg capsule 81 mg PO DAILY 09/19/23 07/15/25 History duloxetine 30 mg capsule,delayed 30 mg PO DAILY 09/19/23 07/15/25 History release losartan 50 mg tablet 50 mg PO DAILY 09/19/23 07/15/25 History omeprazole 20 mg capsule,delayed 20 mg PO DAILY 09/19/23 07/15/25 History release hydrochlorothiazide 25 mg tablet 25 mg PO DAILY 07/03/25 07/15/25 History methocarbamol 500 mg tablet 500 mg PO DAILY PRN pain 07/03/25 07/03/25 History tramadol 50 mg tablet 50 mg PO DAILY PRN pain 07/03/25 07/03/25 History Patient hx anesthesia problems: none Family hx anesthesia problems: none Results Review: All pre-operative results and documents have been reviewed as part of the pre-operative evaluation. [facility] Social History Social History Smoking status: Current every day smoker Tobacco type: pipe Alcohol intake: current Drinks per week: 15 Substance use: current Substance use type: does not use Other substance usage details: KYA salas Living arrangements: with family Spiritual care concerns: No Anes - Eval Final PreProcedure Day of Procedure 07/15/25 10:54 Patient weight: obese Lungs: normal air movement Airway: Mallampati scale class II Neurological: alert and oriented Last oral intake: >/= 8 hours ASA classification: II Emergent: no Anesthetic plan: proceed Anesthesia type and monitoring: general GIVS and standard monitoring Results Review: All pre-operative results and documents have been reviewed as part of the pre-operative evaluation. HTN, hyperlipidemia, smokes a pipe daily. Informed Consent: The patient's anesthetic plan and its attendant risks and benefits were discussed with the patient/family/POA. Questions were solicited and answers provided to the satisfaction of the patient/family/POA.
--- NOTE | 2025-07-15 11:27 | PM.HPGS ---
History of Present Illness History of Present Illness Consent: Risks, benefits, and alternatives have been discussed and questions answered. Patient agrees to proceed with procedure. 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 Living arrangements: with family Spiritual care concerns: No Meds Home Medications and Allergies Home Medications ?Medication ?Instructions ?Recorded ?Confirmed ?Type rosuvastatin 10 mg tablet 10 mg PO DAILY 11/07/22 07/15/25 History aspirin 81 mg capsule 81 mg PO DAILY 09/19/23 07/15/25 History duloxetine 30 mg capsule,delayed 30 mg PO DAILY 09/19/23 07/15/25 History release losartan 50 mg tablet 50 mg PO DAILY 09/19/23 07/15/25 History omeprazole 20 mg capsule,delayed 20 mg PO DAILY 09/19/23 07/15/25 History release hydrochlorothiazide 25 mg tablet 25 mg PO DAILY 07/03/25 07/15/25 History methocarbamol 500 mg tablet 500 mg PO DAILY PRN pain 07/03/25 07/03/25 History tramadol 50 mg tablet 50 mg PO DAILY PRN pain 07/03/25 07/03/25 History Allergies Allergy/AdvReac Type Severity Reaction Status Date / Time gabapentin Allergy Confusion Verified 07/15/25 10:42 naproxen AdvReac Severe Confusion Verified 07/15/25 10:42 Vital Signs Vital Signs - 24 hr 07/15/25 10:44 Temperature 97 F L Pulse Rate 88 Respiratory Rate 18 Blood Pressure 164/93 H Pulse Oximetry 97 Oxygen Delivery Room Air Exam Const: General: comfortable and no acute distress HENMT: Face/Nose/Sinus: Normal nares present Eyes: General: appearance normal, both eyes and all related structures Neck: Neck: no JVD Resp: Auscultation: clear to auscultation bilaterally Cardio: Rate: regular rate Rhythm: regular rhythm GI: Inspection: non-distended GI Palp: Yes Soft to palpation Skin: General skin exam: normal color Neuro: Speech: normal speech Extrem: General: normal to inspection Psych: Mental Status: mental status grossly normal Assessment and Plan Assessment and plan (1) 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
--- NOTE | 2025-07-15 11:40 | S_PTH ---
PATIENT: Dontrell Braden LOC: [facility] Price#:[id number] AGE/SX: 59/M ROOM: RE07/15/[address]: Rashawn Meza MD : 1965 BED: DIS: 07/15/2025 SPEC #: [id number] RECD: 07/15/25 13:22 STATUS: DARVIN RE #: [id number] MOIRA: 07/15/25 11:[address]: Rashawn Meza DEPT: [facility] Surgical RECD BY: Melanie Cormier ENTERED: 07/15/25 13:23 SP TYPE: Surgical OTHR DR: Andry Kerns, Tissues: A - Gastric Biopsy B - Small Bowel Bx C - Esophageal Biopsy D - Esophageal Biopsy E - Esophageal Biopsy Procedures: Hematoxylin and Eosin Stain Gross and Microscopic Level 4
[2025-07-15 11:53] VITALS: BP 134/97; PULSE 89; RESP 18; O2SAT 98
[2025-07-15 12:03] VITALS: BP 140/95; PULSE 88; RESP 16; O2SAT 97
[2025-07-15 12:13] VITALS: BP 144/97; PULSE 84; RESP 17; O2SAT 96
== END 2025-07-15 12:19 | disposition home or self-care (01) ==
PROVIDERS: PCP Internal Medicine; Visit Provider Internal Medicine Gastroenterology
PROC: 0DJ08ZZ Inspection of Upper Intestinal Tract, Via Natural or Artificial Opening Endoscopic (ICD-10-PCS; CPT 43239; principal; 2025-07-15 11:45)
DX: K22.70 Barrett's esophagus without dysplasia (principal); K21.00 Gastro-esophageal reflux disease with esophagitis, without bleeding; K29.50 Unspecified chronic gastritis without bleeding; K44.9 Diaphragmatic hernia without obstruction or gangrene; E78.5 Hyperlipidemia, unspecified; I10 Essential (primary) hypertension; D64.9 Anemia, unspecified; F17.290 Nicotine dependence, other tobacco product, uncomplicated; F12.90 Cannabis use, unspecified, uncomplicated; E66.9 Obesity, unspecified; Z68.38 Body mass index [BMI] 38.0-38.9, adult; Z79.82 Long term (current) use of aspirin; Z79.891 Long term (current) use of opiate analgesic; Z87.19 Personal history of other diseases of the digestive system
CPT/HCPCS: 43239; 88305; J7120